=== PATIENT | male | born 1940 | race Caucasian/White ===

== ENCOUNTER 2019-03-06 17:04 | Emergency (ER) | payer OTHER, MEDICARE ==
[2019-03-06] MEDS ORDERED: ASPI81CH33 PO (17:14)
[2019-03-06] MEDS ORDERED: ADACEL/BOOSTRIX VACCINE (DIPHTH/PERTUSS/ACELL/TETANUS)0.5ML SYR (90715) IM ONE (18:45)
[2019-03-06 19:27] LABS: BASO % 0.5 % (0.0-1.0); EOS # 0.1 10^3/uL (0.0-0.50); EOS % 0.9 % (0.0-3.0); HEMATOCRIT 42.7 % (42.0-52.0); HEMOGLOBIN 15.2 g/dl (13.5-17.5); LYMPH # 2.4 10^3/uL (1.5-4.5); LYMPH % 30.1 % (24.0-44.0); MEAN CORPUSCULAR HEMOGLOBIN 32.8 pg (27.0-33.0); MEAN CORPUSCULAR HGB CONC 35.6 g/dl (32.0-36.5); MEAN CORPUSCULAR VOLUME 92.2 fl (80.0-96.0); MONO # 0.6 10^3/uL (0.0-0.8); MONO % 7.2 % (0.0-5.0); NEUTROPHILS # 4.9 10^3/uL (1.8-7.7); NEUTROPHILS % 61.1 % (36.0-66.0); PLATELET COUNT, AUTOMATED 133 10^3/uL (150-450); RED BLOOD COUNT 4.63 10^6/uL (4.30-6.10)
[2019-03-06 19:45] LABS: BLOOD UREA NITROGEN 21 MG/DL (7-18); CALCIUM LEVEL 9.2 MG/DL (8.8-10.2); CARBON DIOXIDE LEVEL 26 MEQ/L (21-32); CHLORIDE LEVEL 108 MEQ/L (98-107); GLOMERULAR FILTRATION RATE > 60.0 (>42); GLUCOSE, FASTING 163 MG/DL (70-100); POTASSIUM SERUM 4.2 MEQ/L (3.5-5.1); SODIUM LEVEL 141 MEQ/L (136-145)
[2019-03-06] MEDS ORDERED: ISOVUE-370 76% 100ML VIAL (Q9967) As Ordered ONE (20:03)
[2019-03-06 20:31] LABS: INR 1.14; PROTHROMBIN TIME 14.3 SECONDS (11.8-14.0)
[2019-03-06 20:32] LABS: PARTIAL THROMBOPLASTIN TIME 26.7 SECONDS (25.0-38.4)
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
[2019-03-06] MEDS ORDERED: COLC1TAB14 PO (22:24)
[2019-03-06 22:53] VITALS: BP 110/84
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
== END 2019-03-06 22:56 | disposition home or self-care (01) ==
LOC: M ED 17:04
DX: S00.81XA Abrasion of other part of head, initial encounter (principal); S50.02XA Contusion of left elbow, initial encounter; S60.512A Abrasion of left hand, initial encounter; S80.212A Abrasion, left knee, initial encounter; S80.12XA Contusion of left lower leg, initial encounter; V13.0XXA Pedal cycle driver injured in collision with car, pick-up truck or van in nontraffic accident, initial encounter; Y92.410 Unspecified street and highway as the place of occurrence of the external cause; R93.41 Abnormal radiologic findings on diagnostic imaging of renal pelvis, ureter, or bladder; K57.00 Diverticulitis of small intestine with perforation and abscess without bleeding; N28.1 Cyst of kidney, acquired; I10 Essential (primary) hypertension; Z79.82 Long term (current) use of aspirin
CPT/HCPCS: 70450; 70486; 71260; 72125; 73080; 73110; 73502; 73564; 74177; 80048; 85025; 85610; 85730; 90715; 93041; 94760; 96372; 99284; Q9967

== ENCOUNTER → 2019-04-20 | Outpatient (CLI) | payer OTHER, MEDICARE ==
[~2019-04-20] MED LIST: ASPI81CH33 PO; COLC1TAB14 PO
[2019-04-20 20:20] LABS: APPEARANCE, URINE HAZY (CLEAR); BACTERIA, URINE AUTO NEGATIVE (NEGATIVE); BILIRUBIN, URINE AUTO NEGATIVE (NEGATIVE); BLOOD, URINE BLOOD NEGATIVE (NEGATIVE); COLOR, URINE YELLOW (YELLOW); GLUCOSE, URINE (UA) AUTO NEGATIVE (NEGATIVE); KETONE, URINE AUTO NEGATIVE (NEGATIVE); LEUKOCYTE ESTERASE, URINE AUTO NEGATIVE (NEGATIVE); NITRITE, URINE AUTO NEGATIVE (NEGATIVE); PROTEIN, URINE AUTO NEGATIVE (NEGATIVE); RBC, URINE AUTO 0 /HPF (0-3); SPECIFIC GRAVITY URINE AUTO 1.018 (1.002-1.035); SQUAMOUS EPITHELIAL CELL UR AU 0 /HPF (0-6); UROBILINOGEN, URINE AUTO 0.2 mg/dL (0.0-2.0); WBC, URINE AUTO 2 /HPF (0-3)
[2019-04-20 20:25] LABS: BLOOD UREA NITROGEN 28 MG/DL (7-18); CALCIUM LEVEL 9.3 MG/DL (8.8-10.2); CARBON DIOXIDE LEVEL 31 MEQ/L (21-32); CHLORIDE LEVEL 105 MEQ/L (98-107); CREATININE FOR GFR 1.01 MG/DL (0.70-1.30); GLOMERULAR FILTRATION RATE > 60.0 (>42); GLUCOSE, FASTING 138 MG/DL (70-100); POTASSIUM SERUM 4.5 MEQ/L (3.5-5.1); SODIUM LEVEL 141 MEQ/L (136-145)
[2019-04-20 21:05] LABS: HEMOGLOBIN A1c 7.8 %
== END ==
LOC: M WUC 18:05
DX: Z86.39 Personal history of other endocrine, nutritional and metabolic disease (principal)

== ENCOUNTER → 2019-04-25 | Outpatient (REF) | payer OTHER, MEDICARE | LOC: M SMT 13:19 | PROVIDERS: ATTEND Urology | DX: R39.9 Unspecified symptoms and signs involving the genitourinary system (principal) ==

== ENCOUNTER → 2019-04-25 | Outpatient (CLI) | payer MEDICARE, OTHER ==
[~2019-04-25] MED LIST changes: +BACT800T5 PO; +PHEN-501 PO
--- NOTE | 2019-04-25 18:00 | ECGEPIP ---
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
== END ==
LOC: M EKG 12:26
PROVIDERS: ATTEND Urology
DX: R00.1 Bradycardia, unspecified (principal)

== ENCOUNTER 2019-05-04 09:33 | Day surgery (SDC) | payer MEDICARE, OTHER ==
[~2019-05-04] VITALS: Ht 162.6 cm; Wt 72.5 kg
[~2019-05-04 09:33] MED LIST changes: -BACT800T5 PO; +LIDOCAINE 1% MDV 20ML VIAL SQ PRN; +LR 1,000 ML IV ONE; -PHEN-501 PO
[2019-05-04] MEDS ORDERED: LIDOCAINE 2% INJ 100 MG/5 ML SDV (FOR ANES.) As Ordered ONE (12:17)
[2019-05-04] MEDS ORDERED: fentaNYL 100 MCG/2 ML INJECTION (J3010) As Ordered ONE (12:17)
[2019-05-04] MEDS ORDERED: MIDAZOLAM INJ 2 MG/2 ML VIAL (J2250) As Ordered ONE (12:17)
[2019-05-04] MEDS ORDERED: PROPOFOL 200 MG/20 ML VIAL As Ordered ONE ×2 (12:17→12:40)
[2019-05-04] MEDS ORDERED: LIDOCAINE 2% 5ML JELLY UROJET As Ordered ONE (12:32)
[2019-05-04] MEDS ORDERED: ONDANSETRON 4MG/2ML VIAL (J2405) As Ordered ONE (12:40)
[2019-05-04] MEDS ORDERED: KETOROLAC 60 MG/2 ML VIAL (J1885) As Ordered ONE (12:40)
[2019-05-04] MEDS ORDERED: ePHEDrine SULFATE 25 MG/5 ML(5MG/ML) SYRINGE As Ordered ONE (12:48)
[2019-05-04] MEDS ORDERED: PHEN-501 PO (13:44)
[2019-05-04] MEDS ORDERED: BACT800T5 PO (13:44)
[2019-05-04] MEDS ORDERED: PHENAZOPYRIDINE 100 MG TAB PO ONE (15:00)
[2019-05-04 16:00] VITALS: BP 138/67
[2019-05-04] MEDS ORDERED: PHENAZOPYRIDINE 100 MG TAB PO SCH (16:00)
[2019-05-04] MEDS ORDERED: BACTRIM 160MG/800MG DS TAB PO SCH (21:00)
--- NOTE | 2019-05-05 11:45 | RO ---
DATE OF PROCEDURE: 05/04/2019 PREOPERATIVE DIAGNOSIS: Bladder calculi. POSTOPERATIVE DIAGNOSIS: Bladder calculi. PROCEDURE PERFORMED: Cystoscopy with cystolitholapaxy. SURGEON: Robbie Gomez MD PRINTER'S ASSISTANT: ANESTHESIA: General. INDICATION: This 78-year-old man has been having urgency, frequency symptoms. He has a past history of urolithiasis. CT scan showed nonobstructing small bilateral renal calculi and multiple bladder stones all of which appear to be fairly small. We suspected that these might very well be playing a role with irritative symptoms. DESCRIPTION OF PROCEDURE: After the informed consent of the patient, he was taken to the operating room where after induction of adequate anesthetic, he was prepped and draped in the usual manner. The 22-[employer] diagnostic cystoscope was advanced to the bladder, and the bladder inspected with the 30- and 70-degree lenses. Multiple stones were visualized. Photograph was taken. Using the [email or web address] evacuator, we evacuated many of these stones. Additional stones were grasped with grasping forceps and withdrawn in several passes. Final inspection showed no remaining stones in the bladder. The bladder did have grade 3 trabeculation and there were several bladder diverticula with clear mucosa. Prostatic urethra measured 3 cm with some lateral lobe hypertrophy. The urethra was otherwise without lesions other than a small what appeared to be false passage at the 5 o'clock position near the sphincter. This appeared to be old. The bladder was emptied. The patient to outpatient under satisfactory condition as the procedure was done under sedation with propofol and local anesthetic. There were no complications. DISPOSITION: Discharged home on Pyridium 200 three times a day as needed dysuria. Septra DS by mouth twice a day. Resume aspirin when urine clear. Diet as tolerated. Activity light. Followup is already arranged for 2 weeks, at which time, urinalysis can be checked and response to removal stones assessed with regard to urgency, frequency symptoms. MTDD
== END 2019-05-04 16:05 | disposition home or self-care (01) ==
LOC: M SDC 09:33
PROVIDERS: ATTEND Urology
DX: N21.0 Calculus in bladder (principal); E11.9 Type 2 diabetes mellitus without complications; I10 Essential (primary) hypertension; Z95.1 Presence of aortocoronary bypass graft; Z79.82 Long term (current) use of aspirin; Z88.8 Allergy status to other drugs, medicaments and biological substances
CPT/HCPCS: 52317; 82360; 88300; J0690; J1885; J2250; J2405; J3010

== ENCOUNTER → 2019-05-11 | Outpatient (REF) | payer MEDICARE, OTHER ==
[~2019-05-11] MED LIST changes: +BACT800T5 PO; -LIDOCAINE 1% MDV 20ML VIAL SQ PRN; -LR 1,000 ML IV ONE; +PHEN-501 PO
[2019-05-11 14:10] LABS: AMORPHOUS SEDIMENT SMALL (NEGATIVE); APPEARANCE, URINE CLOUDY (CLEAR); BACTERIA, URINE AUTO 1+ (NEGATIVE); BILIRUBIN, URINE AUTO NEGATIVE (NEGATIVE); BLOOD, URINE BLOOD 3+ (NEGATIVE); COLOR, URINE AMBER (YELLOW); GLUCOSE, URINE (UA) AUTO NEGATIVE (NEGATIVE); KETONE, URINE AUTO NEGATIVE (NEGATIVE); LEUKOCYTE ESTERASE, URINE AUTO NEGATIVE (NEGATIVE); MUCUS, URINE SMALL (NEGATIVE); NITRITE, URINE AUTO POSITIVE (NEGATIVE); PROTEIN, URINE AUTO NEGATIVE (NEGATIVE); RBC, URINE AUTO 126 /HPF (0-3); SPECIFIC GRAVITY URINE AUTO 1.012 (1.002-1.035); SQUAMOUS EPITHELIAL CELL UR AU 0 /HPF (0-6); UROBILINOGEN, URINE AUTO 0.2 mg/dL (0.0-2.0); WBC, URINE AUTO 15 /HPF (0-3)
== END ==
LOC: M SMT 12:50
PROVIDERS: ATTEND Nurse Practitioner Family
DX: R32 Unspecified urinary incontinence (principal)